=== PATIENT | male | born 1960 | race Two or more races ===

== ENCOUNTER → 2022-12-23 | Outpatient (CLI) | payer MEDICAID ==
[~2022-12-23] MED LIST: DexAMETHasone SOD PHOS 10MG/1ML VIAL INJ ONE; MEPERIDINE HCL (50 MG/ML) 1 ML VIAL ONE; MIDAZOLAM HCL 2MG/2ML 2ml VIAL (1mg/ml) ONE; SUGAMMADEX 200mg/2ml Vial (100MG/ML) IV ONE; diphenhdrAMINE HCL 50 MG/1 ML VL ONE; fentaNYL CITRATE 100 MCG/2 ML VL ONE
== END | disposition home or self-care (01) ==
LOC: XYW 10:43
PROVIDERS: ATTEND Internal Medicine Pulmonary Disease
DX: J44.9 Chronic obstructive pulmonary disease, unspecified (principal); R06.09 Other forms of dyspnea
CPT/HCPCS: 94060; 94727; 94729; J1100; J2250